=== PATIENT | female | born 1970 | race Caucasian/White ===

== ENCOUNTER → 2018-02-16 | Outpatient (CLI) | payer OTHER | LOC: BC 01:03 | DX: Z12.31 Encounter for screening mammogram for malignant neoplasm of breast (principal) ==

== ENCOUNTER → 2019-03-16 | Outpatient (CLI) | payer OTHER | LOC: RAD 03-05 09:31 | DX: Z12.31 Encounter for screening mammogram for malignant neoplasm of breast (principal) ==